=== PATIENT | male | born 1960 | race Caucasian/White ===

== ENCOUNTER → 2023-06-02 02:40 | Outpatient (REF) | payer OTHER, SELFPAY | LOC: CLAB 02:40 | PROVIDERS: ATTENDING PHYSICIAN Surgery | DX: D17.30 Benign lipomatous neoplasm of skin and subcutaneous tissue of unspecified sites (principal) | CPT/HCPCS: 88304 ==

== ENCOUNTER → 2024-02-25 15:49 | Outpatient (REF) | payer OTHER, SELFPAY | LOC: RCS 15:49 | PROVIDERS: ATTENDING PHYSICIAN Internal Medicine Cardiovascular Disease; FAMILY PHYSICIAN Family Medicine | DX: R00.2 Palpitations (principal) | CPT/HCPCS: 93306 ==

== ENCOUNTER 2024-03-18 14:29 | Emergency (ER) | payer OTHER, SELFPAY ==
[2024-03-18 14:31] VITALS: BP 122/84
[2024-03-18 16:48] VITALS: BMI 23.0
[2024-03-18] MEDS: MOTRIN 600 MG PO (16:49)
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
== END 2024-03-18 17:15 | disposition home or self-care (01) ==
LOC: EMR 14:29
PROVIDERS: EMERGENCY PHYSICIAN Student in an Organized Health Care Education/Training Program; FAMILY PHYSICIAN Family Medicine
DX: M24.312 Pathological dislocation of left shoulder, not elsewhere classified (principal); S22.39XA Fracture of one rib, unspecified side, initial encounter for closed fracture; W19.XXXA Unspecified fall, initial encounter
CPT/HCPCS: 99283; 71101; 73030

== ENCOUNTER 2024-05-01 16:55 | Outpatient (RCR) | payer SELFPAY | END 2024-05-01 23:59 | disposition home or self-care (01) | LOC: RPT 16:55 | PROVIDERS: ATTENDING PHYSICIAN Physician Assistant Surgical; FAMILY PHYSICIAN Family Medicine | DX: S43.012D Anterior subluxation of left humerus, subsequent encounter (principal); M25.512 Pain in left shoulder; M54.12 Radiculopathy, cervical region; Z73.6 Limitation of activities due to disability | CPT/HCPCS: 97110; 97140; 97162 ==

== ENCOUNTER 2024-05-31 17:08 | Outpatient (RCR) | payer SELFPAY | END 2024-05-31 23:59 | disposition home or self-care (01) | LOC: RPT 17:08 | PROVIDERS: ATTENDING PHYSICIAN Physician Assistant Surgical; FAMILY PHYSICIAN Family Medicine | DX: S43.012D Anterior subluxation of left humerus, subsequent encounter (principal); M25.512 Pain in left shoulder; M54.12 Radiculopathy, cervical region; Z73.6 Limitation of activities due to disability | CPT/HCPCS: 97110 ==

== ENCOUNTER 2024-06-05 17:21 | Outpatient (RCR) | payer SELFPAY | END 2024-06-05 23:59 | disposition home or self-care (01) | LOC: RPT 17:21 | PROVIDERS: ATTENDING PHYSICIAN Physician Assistant Surgical; FAMILY PHYSICIAN Family Medicine | DX: S43.012D Anterior subluxation of left humerus, subsequent encounter (principal); M25.512 Pain in left shoulder; M54.12 Radiculopathy, cervical region; Z73.6 Limitation of activities due to disability | CPT/HCPCS: 97110 ==

== ENCOUNTER 2025-01-22 06:24 | Day surgery (SDC) | payer MEDICARE, SELFPAY | END 2025-01-22 09:39 | disposition home or self-care (01) | LOC: GI 06:24 | PROVIDERS: ATTENDING PHYSICIAN Internal Medicine Gastroenterology; FAMILY PHYSICIAN Family Medicine | DX: Z12.11 Encounter for screening for malignant neoplasm of colon (principal); D12.2 Benign neoplasm of ascending colon; K63.5 Polyp of colon | CPT/HCPCS: 45385; 88305 ==